=== PATIENT | male | born 1965 | race Caucasian/White ===

== ENCOUNTER 2017-01-25 18:58 | Emergency (ER) | payer OTHER ==
[~2017-01-25] VITALS: Ht 175.3 cm; Wt 97.5 kg
== END 2017-01-25 19:02 | disposition left against medical advice (07) ==
LOC: SED 18:58
DX: Z02.89 Encounter for other administrative examinations (principal); Z53.21 Procedure and treatment not carried out due to patient leaving prior to being seen by health care provider